=== PATIENT | male | born 1945 | race Caucasian/White ===

== ENCOUNTER 2021-10-16 14:13 | Emergency (ER) | payer MEDICARE ==
[2021-10-16 16:02] LABS: #Eosinphils 0.1 thou/uL (0.0-0.7); #Lymphocytes 1.4 thou/uL (1.20-3.40); #Monocytes 0.5 thou/uL (0.11-0.59); #Neutrophils 4.2 thou/uL (1.40-6.50); %Basophils 0.7 % (0.0-1.0); %Eosinophils 2.3 % (0.0-10.0); %Lymphocytes 22.1 % (21.0-51.0); %Monocytes 7.4 % (0.0-10.0); %Neutrophils 67.5 % (42.0-75.0); Hemoglobin 14.1 g/dL (14.0-18.0); Mean Corpuscular Hemoglobin 32.6 pg (27.0-31.0); Mean Corpuscular Volume 98.7 fL (78.0-98.0); Mean Platelet Volume 5.6 fL (7.4-10.4); Platelet Count 222 thou/uL (130-400); RBC Distribution Width 12.6 % (11.5-14.5); Red Blood Cell (RBC) Count 4.33 mill/uL (4.70-6.10); White Blood Cell (WBC) Count 6.3 thou/uL (4.8-10.8)
[2021-10-16 16:25] LABS: ALT (SGPT) 27 U/L (8-55); AST (SGOT) 24 U/L (5-34); Albumin 4.4 g/dL (3.4-4.8); Alkaline Phosphatase 82 U/L (40-110); Anion Gap 15 mmol/L (10-20); BUN (Urea Nitrogen) 11 mg/dL (8.4-25.7); Bilirubin, Total 0.7 mg/dL (0.2-1.2); Calc. Creatinine Clearance 0 mL/min (70-130); Calcium 9.8 mg/dL (7.8-10.44); Carbon Dioxide 26 mmol/L (23-31); Chloride 100 mmol/L (98-107); Globulin 3.6 g/dL (2.4-3.5); Glucose 85 mg/dL (83-110); Potassium 4.2 mmol/L (3.5-5.1); Sodium 137 mmol/L (136-145)
== END 2021-10-16 20:10 | disposition home or self-care (01) ==
LOC: ERS 14:13
DX: M79.89 Other specified soft tissue disorders (principal); M25.472 Effusion, left ankle; Z79.899 Other long term (current) drug therapy; E78.5 Hyperlipidemia, unspecified; Z86.73 Personal history of transient ischemic attack (TIA), and cerebral infarction without residual deficits; I10 Essential (primary) hypertension; F17.210 Nicotine dependence, cigarettes, uncomplicated; R60.0 Localized edema
CPT/HCPCS: 36415; 80053; 83605; 83880; 85025

== ENCOUNTER 2021-10-20 13:00 | Inpatient (IN) | payer MEDICARE ==
[2021-10-20 15:00] LABS: #Eosinphils 0.1 thou/uL (0.0-0.7); #Lymphocytes 1.4 thou/uL (1.20-3.40); #Monocytes 0.7 thou/uL (0.11-0.59); %Basophils 0.2 % (0.0-1.0); %Eosinophils 1.6 % (0.0-10.0); %Lymphocytes 16.6 % (21.0-51.0); %Monocytes 8.9 % (0.0-10.0); %Neutrophils 72.7 % (42.0-75.0); Hemoglobin 13.3 g/dL (14.0-18.0); Mean Corpuscular Hemoglobin 32.6 pg (27.0-31.0); Mean Corpuscular Volume 98.9 fL (78.0-98.0); Mean Platelet Volume 5.5 fL (7.4-10.4); Platelet Count 208 thou/uL (130-400); RBC Distribution Width 12.5 % (11.5-14.5); Red Blood Cell (RBC) Count 4.08 mill/uL (4.70-6.10); White Blood Cell (WBC) Count 8.3 thou/uL (4.8-10.8)
[2021-10-20 15:23] LABS: ALT (SGPT) 26 U/L (8-55); AST (SGOT) 19 U/L (5-34); Albumin 4.4 g/dL (3.4-4.8); Alkaline Phosphatase 90 U/L (40-110); Anion Gap 16 mmol/L (10-20); BUN (Urea Nitrogen) 13 mg/dL (8.4-25.7); Bilirubin, Total 0.9 mg/dL (0.2-1.2); Calc. Creatinine Clearance 0 mL/min (70-130); Carbon Dioxide 27 mmol/L (23-31); Chloride 98 mmol/L (98-107); Globulin 3.1 g/dL (2.4-3.5); Glucose 97 mg/dL (83-110); Potassium 4.1 mmol/L (3.5-5.1); Protein, Total 7.5 g/dL (5.8-8.1); Sodium 137 mmol/L (136-145)
[2021-10-20] MEDS ORDERED: Cefepime 2 GM VIAL ONE (16:06)
[2021-10-20] MEDS ORDERED: Morphine 4 MG/ML VIAL ONE (17:14)
[2021-10-20] MEDS ORDERED: HYDROcodone/Acetaminophen 10/325 mg Tablet PO SCH (21:45)
[2021-10-20] MEDS ORDERED: Senokot S 8.6-50 MG TAB PO PRN (22:14)
[2021-10-20] MEDS ORDERED: Acetaminophen 325 MG TAB PO PRN (22:14)
[2021-10-20] MEDS ORDERED: Calcium Carbonate 500 MG ChewTAB PO PRN (22:14)
[2021-10-20] MEDS ORDERED: Ondansetron PF 4 MG/2 ML Vial IVP PRN (22:14)
[2021-10-20] MEDS ORDERED: Bisacodyl 5 MG TAB PO PRN (22:14)
[2021-10-20 22:53] LABS: #Eosinphils 0.1 thou/uL (0.0-0.7); #Lymphocytes 1.3 thou/uL (1.20-3.40); #Monocytes 0.9 thou/uL (0.11-0.59); #Neutrophils 5.1 thou/uL (1.40-6.50); %Basophils 0.2 % (0.0-1.0); %Eosinophils 1.9 % (0.0-10.0); %Neutrophils 68.9 % (42.0-75.0); Mean Corpuscular HGB CONC 33.1 g/dL (32.0-36.0); Mean Corpuscular Hemoglobin 32.7 pg (27.0-31.0); Mean Platelet Volume 5.6 fL (7.4-10.4); Platelet Count 201 thou/uL (130-400); RBC Distribution Width 12.4 % (11.5-14.5); Red Blood Cell (RBC) Count 3.96 mill/uL (4.70-6.10); White Blood Cell (WBC) Count 7.4 thou/uL (4.8-10.8)
[2021-10-20 23:13] LABS: ALT (SGPT) 21 U/L (8-55); AST (SGOT) 18 U/L (5-34); Albumin 3.9 g/dL (3.4-4.8); Alkaline Phosphatase 81 U/L (40-110); Anion Gap 15 mmol/L (10-20); BUN (Urea Nitrogen) 11 mg/dL (8.4-25.7); Bilirubin, Total 0.7 mg/dL (0.2-1.2); Calc. Creatinine Clearance 0 mL/min (70-130); Calcium 8.9 mg/dL (7.8-10.44); Carbon Dioxide 26 mmol/L (23-31); Chloride 101 mmol/L (98-107); Globulin 3.3 g/dL (2.4-3.5); Glucose 100 mg/dL (83-110); Potassium 3.9 mmol/L (3.5-5.1); Protein, Total 7.2 g/dL (5.8-8.1); Sodium 138 mmol/L (136-145)
[2021-10-20] MEDS ORDERED: Piperacillin/Tazobactam 3.375 GM in Sodium Chloride 0.9% 100 ML IVPB SCH (23:59)
[2021-10-21 00:51] VITALS: BMI 25.7
[2021-10-21] MEDS: HYDROcodone/Acetaminophen 5/325 mg Tablet PO PRN ×3 (04:17→19:08)
[2021-10-21] MEDS: Piperacillin/Tazobactam 3.375 GM in Sodium Chloride 0.9% 100 ML IVPB SCH ×3 (04:20→19:29)
[2021-10-21 06:19] LABS: #Eosinphils 0.2 thou/uL (0.0-0.7); #Lymphocytes 1.3 thou/uL (1.20-3.40); #Monocytes 0.6 thou/uL (0.11-0.59); #Neutrophils 4.6 thou/uL (1.40-6.50); %Basophils 0.1 % (0.0-1.0); %Eosinophils 2.5 % (0.0-10.0); %Lymphocytes 18.9 % (21.0-51.0); %Monocytes 9.3 % (0.0-10.0); %Neutrophils 69.2 % (42.0-75.0); Mean Corpuscular HGB CONC 32.8 g/dL (32.0-36.0); Mean Corpuscular Hemoglobin 32.7 pg (27.0-31.0); Mean Corpuscular Volume 99.6 fL (78.0-98.0); Mean Platelet Volume 5.9 fL (7.4-10.4); Platelet Count 197 thou/uL (130-400); RBC Distribution Width 12.4 % (11.5-14.5); Red Blood Cell (RBC) Count 3.66 mill/uL (4.70-6.10); White Blood Cell (WBC) Count 6.7 thou/uL (4.8-10.8)
[2021-10-21 06:47] LABS: Anion Gap 14 mmol/L (10-20); BUN (Urea Nitrogen) 9 mg/dL (8.4-25.7); Calc. Creatinine Clearance 101 mL/min (70-130); Calcium 8.9 mg/dL (7.8-10.44); Carbon Dioxide 27 mmol/L (23-31); Chloride 102 mmol/L (98-107); Glucose 100 mg/dL (83-110); Potassium 4.1 mmol/L (3.5-5.1); Sodium 139 mmol/L (136-145)
[2021-10-21] MEDS: Cefepime 2 GM in Sodium Chloride 0.9% 100 ML IVPB SCH ×2 (08:48→20:51)
[2021-10-21] MEDS: Clopidogrel Bisulfate 75 MG TAB PO SCH (08:48)
[2021-10-21] MEDS ORDERED: Iopamidol 370 76% 100 ML VIAL ONE (13:12)
[2021-10-21] MEDS: Rosuvastatin 20 MG TAB PO SCH (19:48)
[2021-10-22] MEDS ORDERED: Lorazepam 1 MG TAB PO PRN
[2021-10-22] MEDS: Piperacillin/Tazobactam 3.375 GM in Sodium Chloride 0.9% 100 ML IVPB SCH ×2 (03:51→13:25)
[2021-10-22] MEDS: HYDROcodone/Acetaminophen 5/325 mg Tablet PO PRN ×3 (05:20→20:59)
[2021-10-22 06:55] LABS: Anion Gap 16 mmol/L (10-20); BUN (Urea Nitrogen) 7 mg/dL (8.4-25.7); Calc. Creatinine Clearance 104 mL/min (70-130); Calcium 8.8 mg/dL (7.8-10.44); Carbon Dioxide 24 mmol/L (23-31); Chloride 102 mmol/L (98-107); Estimated GFR 94; Glucose 94 mg/dL (83-110); Potassium 3.7 mmol/L (3.5-5.1); Sodium 138 mmol/L (136-145)
[2021-10-22] MEDS: Clopidogrel Bisulfate 75 MG TAB PO SCH (08:18)
[2021-10-22] MEDS: Cefepime 2 GM in Sodium Chloride 0.9% 100 ML IVPB SCH ×2 (08:19→19:54)
[2021-10-22] MEDS: metroNIDAZOLE 500 MG TAB PO SCH ×2 (15:37→19:54)
[2021-10-22] MEDS ORDERED: Nicotine 21 MG PATCH TOP PRN (15:57)
[2021-10-22] MEDS ORDERED: Electrolyte Replacement Protocol 1 EACH FS PRN (16:00)
[2021-10-22] MEDS ORDERED: Ondansetron ODT 4 MG TAB PO PRN (16:00)
[2021-10-22] MEDS ORDERED: VANCOMYCIN 1.25 GM/250 ML BAG 1.25 GM in Premix Bag 1 BAG IVPB SCH (16:00)
[2021-10-22] MEDS ORDERED: Lorazepam 2 MG/ML VIAL IM PRN (16:00)
[2021-10-22] MEDS: Lorazepam 1 MG TAB PO SCH ×3 (16:14→23:09)
[2021-10-22] MEDS: Thiamine HCl 200 MG/2 ML VIAL SLOW IVP SCH (16:58)
[2021-10-22] MEDS ORDERED: Lidocaine 1% (PF) 30 ML VIAL ONE (17:25)
[2021-10-22] MEDS: Rosuvastatin 20 MG TAB PO SCH (19:54)
[2021-10-22] MEDS ORDERED: Vancomycin HCl 1 GM in Sodium Chloride 0.9% 250 ML 250 ML IVPB SCH (21:00)
[2021-10-23] MEDS: HYDROcodone/Acetaminophen 5/325 mg Tablet PO PRN ×3 (00:26→13:54)
[2021-10-23] MEDS: Vancomycin 1 GM in Premix Bag 1 BAG IVPB SCH ×2 (03:13→16:57)
[2021-10-23] MEDS: Lorazepam 1 MG TAB PO SCH ×3 (05:15→12:22)
[2021-10-23 06:53] LABS: Anion Gap 12 mmol/L (10-20); BUN (Urea Nitrogen) 8 mg/dL (8.4-25.7); Calc. Creatinine Clearance 102 mL/min (70-130); Calcium 8.9 mg/dL (7.8-10.44); Carbon Dioxide 27 mmol/L (23-31); Chloride 104 mmol/L (98-107); Estimated GFR 94; Glucose 92 mg/dL (83-110); Potassium 3.7 mmol/L (3.5-5.1); Sodium 139 mmol/L (136-145)
[2021-10-23] MEDS: Multivit, Therapeutic 1 TAB PO SCH (08:10)
[2021-10-23] MEDS: Cefepime 2 GM in Sodium Chloride 0.9% 100 ML IVPB SCH ×2 (08:10→19:40)
[2021-10-23] MEDS: metroNIDAZOLE 500 MG TAB PO SCH ×3 (08:10→19:42)
[2021-10-23] MEDS: Clopidogrel Bisulfate 75 MG TAB PO SCH (08:11)
[2021-10-23] MEDS: Folic Acid 1 MG TAB PO SCH (08:11)
[2021-10-23] MEDS: Amlodipine 10 MG TAB PO SCH (09:59)
[2021-10-23] MEDS ORDERED: Lorazepam 1 MG TAB PO PRN (16:00)
[2021-10-23] MEDS: Thiamine HCl 200 MG/2 ML VIAL SLOW IVP SCH (16:57)
[2021-10-23] MEDS: Rosuvastatin 20 MG TAB PO SCH (19:40)
[2021-10-24] MEDS: HYDROcodone/Acetaminophen 5/325 mg Tablet PO PRN ×3 (02:03→23:41)
[2021-10-24] MEDS: Vancomycin 1 GM in Premix Bag 1 BAG IVPB SCH (03:34)
[2021-10-24 03:51] LABS: Anion Gap 16 mmol/L (10-20); BUN (Urea Nitrogen) 8 mg/dL (8.4-25.7); Calc. Creatinine Clearance 101 mL/min (70-130); Carbon Dioxide 24 mmol/L (23-31); Chloride 102 mmol/L (98-107); Estimated GFR 93; Glucose 90 mg/dL (83-110); Potassium 3.6 mmol/L (3.5-5.1); Sodium 138 mmol/L (136-145)
[2021-10-24] MEDS ORDERED: Lorazepam 0.5 MG TAB PO SCH (06:00)
[2021-10-24] MEDS: Clopidogrel Bisulfate 75 MG TAB PO SCH (08:19)
[2021-10-24] MEDS: Multivit, Therapeutic 1 TAB PO SCH (08:19)
[2021-10-24] MEDS: Amlodipine 10 MG TAB PO SCH (08:19)
[2021-10-24] MEDS: Cefepime 2 GM in Sodium Chloride 0.9% 100 ML IVPB SCH (08:19)
[2021-10-24] MEDS: metroNIDAZOLE 500 MG TAB PO SCH (08:19)
[2021-10-24] MEDS: Folic Acid 1 MG TAB PO SCH (08:19)
[2021-10-24] MEDS ORDERED: Lorazepam 2 MG/ML VIAL SLOW IVP SCH (11:00)
[2021-10-24] MEDS ORDERED: Meropenem 1 GM in Sodium Chloride 0.9% 100 ML IVPB SCH (14:00)
[2021-10-24] MEDS: Thiamine HCl 200 MG/2 ML VIAL SLOW IVP SCH (15:47)
[2021-10-24] MEDS: Lorazepam 1 MG TAB PO PRN ×2 (17:51→23:38)
[2021-10-24] MEDS: Rosuvastatin 20 MG TAB PO SCH (20:12)
[2021-10-24] MEDS: Meropenem 1 GM in Sodium Chloride 0.9% 100 ML IVPB SCH (21:50)
[2021-10-25] MEDS: Meropenem 1 GM in Sodium Chloride 0.9% 100 ML IVPB SCH ×3 (05:14→21:05)
[2021-10-25 06:47] LABS: Anion Gap 16 mmol/L (10-20); BUN (Urea Nitrogen) 9 mg/dL (8.4-25.7); Calc. Creatinine Clearance 86 mL/min (70-130); Calcium 8.9 mg/dL (7.8-10.44); Carbon Dioxide 24 mmol/L (23-31); Chloride 104 mmol/L (98-107); Estimated GFR 89; Glucose 82 mg/dL (83-110); Potassium 3.6 mmol/L (3.5-5.1); Sodium 140 mmol/L (136-145)
[2021-10-25] MEDS: Amlodipine 10 MG TAB PO SCH (08:38)
[2021-10-25] MEDS: Thiamine 100 MG TAB PO SCH (08:38)
[2021-10-25] MEDS: Multivit, Therapeutic 1 TAB PO SCH (08:38)
[2021-10-25] MEDS: Clopidogrel Bisulfate 75 MG TAB PO SCH (08:38)
[2021-10-25] MEDS: Folic Acid 1 MG TAB PO SCH (08:38)
[2021-10-25] MEDS: HYDROcodone/Acetaminophen 5/325 mg Tablet PO PRN ×3 (08:46→21:06)
[2021-10-25] MEDS: Lorazepam 0.5 MG TAB PO PRN ×3 (08:46→21:06)
[2021-10-25] MEDS: Rosuvastatin 20 MG TAB PO SCH (21:05)
[2021-10-26] MEDS: Lorazepam 0.5 MG TAB PO PRN ×3 (02:45→15:13)
[2021-10-26] MEDS: HYDROcodone/Acetaminophen 5/325 mg Tablet PO PRN ×3 (02:46→15:12)
[2021-10-26] MEDS: Meropenem 1 GM in Sodium Chloride 0.9% 100 ML IVPB SCH ×2 (05:17→15:13)
[2021-10-26] MEDS: Clopidogrel Bisulfate 75 MG TAB PO SCH (08:56)
[2021-10-26] MEDS: Folic Acid 1 MG TAB PO SCH (08:56)
[2021-10-26] MEDS: Amlodipine 10 MG TAB PO SCH (08:56)
[2021-10-26] MEDS: Multivit, Therapeutic 1 TAB PO SCH (08:56)
[2021-10-26] MEDS: Thiamine 100 MG TAB PO SCH (08:57)
[2021-10-26 16:27] VITALS: BP 148/76; TEMP 97.9
== END 2021-10-26 18:59 | disposition home or self-care (01) | DRG 516 ==
LOC: ERS 13:00 → ERHOLD 16:19 → T4-B 21:27
PROVIDERS: ADMIT Internal Medicine; ATTEND Internal Medicine
PROC: 0H9RXZZ Drainage of Toe Nail, External Approach (ICD-10-PCS; principal; 2021-10-22)
PROC: 0PBS0ZZ Excision of Left Thumb Phalanx, Open Approach (ICD-10-PCS; 2021-10-22)
DX: M86.172 Other acute osteomyelitis, left ankle and foot (principal); L03.116 Cellulitis of left lower limb; Z20.822 Contact with and (suspected) exposure to COVID-19; E78.5 Hyperlipidemia, unspecified; I10 Essential (primary) hypertension; I70.221 Atherosclerosis of native arteries of extremities with rest pain, right leg; F17.210 Nicotine dependence, cigarettes, uncomplicated; F10.10 Alcohol abuse, uncomplicated; Z88.6 Allergy status to analgesic agent; Z79.899 Other long term (current) drug therapy
CPT/HCPCS: 36415; 75635; 80048; 80053; 80202; 83605; 85025; 85652; 86140; 87040; 87070; 87205; 93306; 94640; 96361; 96374; 96375; 97139; J0692; J2001; J2060; J2185; J2270; J2543; J3370; J3411; J3490; J7620; Q9967; U0003; U0005

== ENCOUNTER 2021-12-02 10:59 | Outpatient (CLI) | payer MEDICARE ==
[2021-12-02 12:38] LABS: Mean Corpuscular HGB CONC 33.2 g/dL (32.0-36.0); Mean Corpuscular Hemoglobin 31.3 pg (27.0-33.0); Mean Corpuscular Volume 94.2 fl (81.2-95.1); Mean Platelet Volume 8.1 fl (7.4-10.4); Platelet Count 229 10x3/uL (150-450); RBC Distribution Width 13.4 % (11.5-14.5); Red Blood Cell (RBC) Count 4.15 10x6/uL (4.32-5.72); White Blood Cell (WBC) Count 4.7 10x3/uL (3.5-10.5)
[2021-12-02 13:04] LABS: Anion Gap 14 mmol/L (10-20); BUN (Urea Nitrogen) 17 mg/dL (8.4-25.7); Calc. Creatinine Clearance 0 mL/min (70-130); Calcium 9.4 mg/dL (7.8-10.44); Carbon Dioxide 27 mmol/L (23-31); Chloride 103 mmol/L (98-107); Estimated GFR 92; Glucose 88 mg/dL (83-110); Potassium 4.7 mmol/L (3.5-5.1); Sodium 139 mmol/L (136-145)
== END 2021-12-02 11:00 | disposition home or self-care (01) ==
LOC: LABBT 10:59
PROVIDERS: ATTEND Thoracic Surgery (Cardiothoracic Vascular Surgery)
DX: Z01.812 Encounter for preprocedural laboratory examination (principal); I70.221 Atherosclerosis of native arteries of extremities with rest pain, right leg; Z20.822 Contact with and (suspected) exposure to COVID-19
CPT/HCPCS: 80048; 85027; 87811

== ENCOUNTER 2021-12-04 05:50 | Day surgery (SDC) | payer MEDICARE ==
[2021-12-03 10:35] VITALS: BMI 24.1
[2021-12-04] MEDS ORDERED: Lidocaine 1% PF 5 ML VIAL ONE (06:42)
[2021-12-04] MEDS ORDERED: Fentanyl 100 MCG/2 ML VIAL ONE (07:08)
[2021-12-04] MEDS ORDERED: Midazolam HCl 2 mg/2 ml Vial ONE (07:08)
[2021-12-04] MEDS ORDERED: Heparin 10,000 UNITS/ 10 ML VIAL ONE (07:40)
[2021-12-04] MEDS ORDERED: Iopamidol 370 76% 100 ML VIAL ONE (08:30)
[2021-12-04] MEDS ORDERED: Protamine Sulfate 50 MG/5 ML VIAL ONE (08:33)
[2021-12-04] MEDS ORDERED: fentaNYL Citrate/PF 100 MCG/2 ML SYRINGE ONE ×2 (09:44→12:12)
[2021-12-04] MEDS ORDERED: Hydrocodone-Acetamin 15 ML UDCUP ONE (15:01)
[2021-12-04] MEDS ORDERED: HYDROcodone/Acetaminophen 7.5/325 mg Tablet ONE (15:02)
== END 2021-12-04 15:30 | disposition home or self-care (01) ==
LOC: SDC 05:50
PROVIDERS: ATTEND Thoracic Surgery (Cardiothoracic Vascular Surgery)
PROC: 047J3DZ Dilation of Left External Iliac Artery with Intraluminal Device, Percutaneous Approach (ICD-10-PCS; principal; 2021-12-04)
PROC: 047H3DZ Dilation of Right External Iliac Artery with Intraluminal Device, Percutaneous Approach (ICD-10-PCS; 2021-12-04)
DX: I70.223 Atherosclerosis of native arteries of extremities with rest pain, bilateral legs (principal); I10 Essential (primary) hypertension; E78.5 Hyperlipidemia, unspecified; F17.210 Nicotine dependence, cigarettes, uncomplicated; Z79.02 Long term (current) use of antithrombotics/antiplatelets; Z79.899 Other long term (current) drug therapy; Z88.8 Allergy status to other drugs, medicaments and biological substances; Z95.820 Peripheral vascular angioplasty status with implants and grafts
CPT/HCPCS: 37221 ×2; 85347 ×2; C1758; C1769 ×3; C1876 ×2; 36247; 37223; 75630; 99152; 99153; J1644; J2250; J2720; J3010; Q9967

== ENCOUNTER 2022-03-09 07:21 | Inpatient (IN) | payer MEDICARE ==
[2022-03-09 07:51] LABS: Actual Bicarbonate (HCO3v) 27 mEq/L (22-28); Analyzer IN Cardio ER; Base Excess 1.2 mEq/L (-2.0 to +3.0); Calcium, Ionized (venous) 1.06 mmol/L (1.16-1.32); Chloride (VBG) 102 mmol/L (98-106); Hemoglobin (Hb) 9.2 g/dL (12.6-17.4); Potassium (VBG) 4.46 mmol/L (3.70-5.30); Sodium 136.9 mmol/L (133-146); pH (venous) 7.38 (7.32-7.43)
[2022-03-09] MEDS ORDERED: Cefepime 2 GM VIAL ONE (08:04)
[2022-03-09] MEDS ORDERED: Vancomycin 1.5 GRAM/300 ML BAG 1.5 GM in Premix Bag 1 BAG IVPB SCH (08:15)
[2022-03-09] MEDS ORDERED: Lorazepam 2 MG/ML VIAL ONE ×2 (08:24→09:34)
[2022-03-09] MEDS ORDERED: Morphine 4 MG/ML VIAL ONE ×4 (08:36→09:34)
[2022-03-09] MEDS ORDERED: Thiamine HCl 200 MG/2 ML VIAL SLOW IVP SCH (08:45)
[2022-03-09 08:52] LABS: Bacteria/HPF None Seen HPF (None Seen); Bilirubin Negative (Negative); Blood, Urine 2+ (Negative); Clarity Clear (Clear); Glucose, Urine (Dipstick) Normal (Negative); Ketone, Urine Negative (Negative); Leukocyte 250 Leu/uL (Negative); Nitrite Negative (Negative); Protein, Urine (Dipstick) 50 mg/dL (Neg-Trace); Specific Gravity, Urine 1.025 (1.002-1.036); Squamous Epithelial None Seen HPF (0-3)
[2022-03-09] MEDS ORDERED: Ondansetron PF 4 MG/2 ML Vial IVP PRN (09:46)
[2022-03-09] MEDS ORDERED: Nicotine 14 MG PATCH TOP SCH (10:00)
[2022-03-09 10:01] LABS: SARS-CoV-2 NAA Rapid Test Not Detected (NotDetected)
[2022-03-09 10:31] VITALS: BMI 22.2
[2022-03-09 10:35] VITALS: BP 93/54; TEMP 98.4
[2022-03-09] MEDS ORDERED: FLU VACC QS2022-23(65YR UP)/PF 240 MCG/0.7 ML SYRINGE IM ONE (10:45)
[2022-03-09] MEDS: Morphine 4 MG/ML VIAL SLOW IVP PRN ×2 (11:11→13:09)
[2022-03-09] MEDS: Lorazepam 2 MG/ML VIAL SLOW IVP PRN ×2 (11:22→13:10)
[2022-03-09 12:55] LABS: #Lymphocytes 1.1 thou/uL (1.20-3.40); #Monocytes 0.9 thou/uL (0.11-0.59); #Neutrophils 7.9 thou/uL (1.40-6.50); %Basophils 0.1 % (0.0-1.0); %Eosinophils 0.3 % (0.0-10.0); %Lymphocytes 11.1 % (21.0-51.0); %Monocytes 8.6 % (0.0-10.0); Hemoglobin 8.7 g/dL (14.0-18.0); Mean Corpuscular HGB CONC 30.9 g/dL (32.0-36.0); Mean Corpuscular Volume 97.2 fl (78.0-98.0); Mean Platelet Volume 6.5 fL (7.4-10.4); Platelet Count 352 10x3/uL (130-400); RBC Distribution Width 13.6 % (11.5-14.5); White Blood Cell (WBC) Count 9.9 10x3/uL (4.8-10.8)
[2022-03-09 13:06] LABS: INR-International Normal Ratio 1.1; Prothrombin Time 14.9 sec (12.0-14.7)
[2022-03-09 13:08] LABS: PTT 49.9 sec (22.9-36.1)
[2022-03-09 13:23] LABS: ALT (SGPT) 98 U/L (8-55); AST (SGOT) 124 U/L (5-34); Albumin 3.2 g/dL (3.4-4.8); Alkaline Phosphatase 106 U/L (40-110); Anion Gap 18 mmol/L (10-20); BUN (Urea Nitrogen) 15 mg/dL (8.4-25.7); Bilirubin, Total 0.5 mg/dL (0.2-1.2); Calc. Creatinine Clearance 84 mL/min (70-130); Calcium 8.1 mg/dL (7.8-10.44); Carbon Dioxide 25 mmol/L (23-31); Chloride 103 mmol/L (98-107); Estimated GFR 92; Globulin 3.2 g/dL (2.4-3.5); Glucose 109 mg/dL (83-110); Potassium 4.7 mmol/L (3.5-5.1); Protein, Total 6.4 g/dL (5.8-8.1); Sodium 141 mmol/L (136-145)
[2022-03-09 13:46] LABS: CKMB 14.3 ng/mL (0-6.6)
== END 2022-03-09 13:43 | disposition hospice, inpatient (51) | DRG 871 ==
LOC: ERS 07:21 → T4-A 10:19
PROVIDERS: ADMIT Internal Medicine; ATTEND Internal Medicine
DX: A41.9 Sepsis, unspecified organism (principal); G93.41 Metabolic encephalopathy; J80 Acute respiratory distress syndrome; R65.20 Severe sepsis without septic shock; Z20.822 Contact with and (suspected) exposure to COVID-19; Z66 Do not resuscitate; I10 Essential (primary) hypertension; E78.5 Hyperlipidemia, unspecified; F17.210 Nicotine dependence, cigarettes, uncomplicated; L89.151 Pressure ulcer of sacral region, stage 1; F10.10 Alcohol abuse, uncomplicated; Z88.6 Allergy status to analgesic agent; Z79.899 Other long term (current) drug therapy; Z89.512 Acquired absence of left leg below knee; Z82.49 Family history of ischemic heart disease and other diseases of the circulatory system; Z51.5 Encounter for palliative care; Z86.73 Personal history of transient ischemic attack (TIA), and cerebral infarction without residual deficits
CPT/HCPCS: 36415; 36416; 81003; 81015; 82553; 82805; 83880; 84484; 85610; 85730; 87086; 93005; 96361; 96374; 96375; 96376; J0692; J2060; J2270; J3370; J3411

== ENCOUNTER 2022-03-09 13:49 | Inpatient (IN) | payer OTHER ==
[2022-03-09] MEDS ORDERED: Haloperidol Lactate 5 MG/ML VIAL SLOW IVP PRN (14:39)
[2022-03-09] MEDS ORDERED: Bisacodyl 10 MG SUPP PR PRN (14:41)
[2022-03-09] MEDS ORDERED: Ondansetron PF 4 MG/2 ML Vial IVP PRN (14:45)
[2022-03-09] MEDS ORDERED: Scopolamine 1.5 mg/72 hour Patch TOP PRN (14:45)
[2022-03-09] MEDS ORDERED: diphenhydrAMINE 50 MG/ML VIAL IVP PRN (14:45)
[2022-03-09] MEDS ORDERED: Promethazine HCl 25 MG SUPP PR PRN (14:45)
[2022-03-09] MEDS ORDERED: Acetaminophen 650 MG Suppository PR PRN (14:45)
[2022-03-09] MEDS: Nicotine 14 MG PATCH TOP SCH (14:47)
[2022-03-09 14:53] VITALS: BMI 22.2
[2022-03-09] MEDS: Lorazepam 2 MG/ML VIAL SLOW IVP PRN ×2 (15:36→23:36)
[2022-03-09] MEDS: Morphine 4 MG/ML VIAL SLOW IVP PRN ×4 (15:36→23:47)
[2022-03-10] MEDS: Morphine 4 MG/ML VIAL SLOW IVP PRN ×11 (02:22→21:35)
[2022-03-10] MEDS: Lorazepam 2 MG/ML VIAL SLOW IVP PRN ×5 (03:03→21:35)
[2022-03-10] MEDS: Nicotine 14 MG PATCH TOP SCH (13:36)
[2022-03-10 19:47] VITALS: BP 57/33; TEMP 97.8
== END 2022-03-10 22:45 | disposition expired | DRG 951 ==
LOC: T4-A 13:49
PROVIDERS: ADMIT Family Medicine; ATTEND Family Medicine
DX: Z51.5 Encounter for palliative care (principal); J96.01 Acute respiratory failure with hypoxia; A41.9 Sepsis, unspecified organism; I26.99 Other pulmonary embolism without acute cor pulmonale; Z66 Do not resuscitate; E78.5 Hyperlipidemia, unspecified; I10 Essential (primary) hypertension; I73.9 Peripheral vascular disease, unspecified; E88.09 Other disorders of plasma-protein metabolism, not elsewhere classified
CPT/HCPCS: J2060; J2270